=== PATIENT | male | born 1990 | race Caucasian/White ===

== ENCOUNTER 2021-06-17 19:26 | Emergency (ER) | payer OTHER, SELFPAY ==
[2021-06-17 19:40] VITALS: BP 119/79; PULSE 70; RESP 20; TEMP 37.6; O2SAT 100
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
== END 2021-06-17 20:33 | disposition home or self-care (01) ==
PROVIDERS: Emergency Provider Nurse Practitioner
DX: S61.411A Laceration without foreign body of right hand, initial encounter (principal); W45.8XXA Other foreign body or object entering through skin, initial encounter
CPT/HCPCS: 12002; 99212; G0463

== ENCOUNTER 2021-09-29 13:33 | Emergency (ER) | payer OTHER, SELFPAY ==
[2021-09-29 13:38] VITALS: BP 134/62; PULSE 63; RESP 14; TEMP 37; O2SAT 100
--- NOTE | 2021-09-29 13:43 | ED.BACK ---
HPI - Back Pain/Injury General Chief Complaint: Back Pain/Injury Stated Complaint: Back Pain Time Seen by Provider: 09/29/21 13:43 Source: patient and RN notes reviewed History of Present Illness HPI Narrative: Patient is a 30-year-old male who presents the urgent care with complaints of upper back pain. Patient states he is done a lot of remodeling at home and does have a history of neck pain radiating. Patient states that he has recently been seeing a chiropractor which did seem to help with the pain however he is now having some radiation to the left shoulder and elbow. Patient has been taking ibuprofen with little relief. No other acute complaints. No acute distress noted. Patient aware of the plan of care. Some parts of this dictation were generated by voice recognition software and may contain typographical and/or grammatical inaccuracies. Related Data Allergies Allergy/AdvReac Type Severity Reaction Status Date / Time No Known Allergies Allergy Verified 09/29/21 13:47 Review of Systems Review of Systems: CONSTITUTIONAL: Denies fever, chills, or sweats. EYES: Denies visual changes, redness, or discharge. ENT: Denies rhinorrhea, congestion, sore throat, or otalgia. CARDIOVASCULAR: Denies chest pain, palpitations, or edema. RESPIRATORY: Denies cough or dyspnea. GASTROINTESTINAL: Denies abdominal pain, nausea, vomiting, or diarrhea. GENITOURINARY: Denies dysuria or hematuria. SKIN: Denies rash or itching. MUSCULOSKELETAL: Reports of upper back pain radiating to the left shoulder and elbow NEUROLOGIC: Denies headache, numbness, or weakness. All other systems reviewed are negative, except as documented in HPI. PMFSH Comments At the time of my signature, I reviewed and agree with the nursing past medical, surgical, social, and family history. There is no relevant family history pertinent to the patient complaint. Exam Narrative: GENERAL: This is a well-nourished, well-developed patient, in no apparent distress. HEAD: normocephalic, atraumatic. EYES: PERRL. Sclera clear/white. Vision is grossly intact. EARS: External ears normal NOSE: External nose normal with no obvious nasal discharge, nares without redness, no rhinorrhea. THROAT: Mucous membranes moist NECK: Neck supple; mild left cervical tenderness exacerbated with flexion CARDIOVASCULAR: Regular rate and rhythm without murmurs, gallops, or rubs. RESPIRATORY: Clear to auscultation. Breath sounds equal bilaterally. No wheezes, rales, or rhonchi. SKIN: warm, intact with no suspicious lesions or rash, good texture and turgor. NEURO: awake, alert, and oriented to person, place and time. There were no obvious focal neurologic abnormalities. EXTREMITIES: No clubbing, cyanosis, or edema. BACK: Mild upper thoracic/scapular tenderness. Course Course Level of Care: Express Care Visit Vital Signs Vital signs: Vital Signs Temperature 98.6 F 09/29/21 13:38 Pulse Rate 63 09/29/21 13:38 Respiratory Rate 14 09/29/21 13:38 Blood Pressure 134/62 09/29/21 13:38 Pulse Oximetry 100 09/29/21 13:38 Oxygen Delivery Room Air 09/29/21 13:38 Temperature 98.6 F 09/29/21 13:38 Pulse Rate 63 09/29/21 13:38 Respiratory Rate 14 09/29/21 13:38 Blood Pressure 134/62 09/29/21 13:38 Pulse Oximetry 100 09/29/21 13:38 Oxygen Delivery Room Air 09/29/21 13:38 Reviewed MDM - Back Pain/Injury MDM Narrative Medical decision making narrative: Advised patient complete the steroid regimen as prescribed. Be sure to eat and drink with the medication. Use the Flexeril as needed for a muscle relaxant. Be aware that it does make you drowsy and would not advise operating heavy machinery or working while on the medication. Use the ibuprofen as needed for pain. May use ice/heat intermittently for comfort. Avoid any strenuous activity especially lifting above the head, pushing, pulling. Follow-up with your PCP within 2 to 5 days or for worsening symptoms
[2021-09-29 13:48] VITALS: BP 134/62; PULSE 63; RESP 14; TEMP 37; O2SAT 100
== END 2021-09-29 14:01 | disposition home or self-care (01) ==
PROVIDERS: Emergency Provider Nurse Practitioner Family; PCP Internal Medicine
DX: M54.12 Radiculopathy, cervical region (principal)
CPT/HCPCS: 99213; G0463

== ENCOUNTER 2022-04-18 14:36 | Emergency (ER) | payer OTHER, SELFPAY ==
[2022-04-18 14:42] VITALS: BP 144/63; PULSE 88; RESP 18; TEMP 37.1; O2SAT 100
--- NOTE | 2022-04-18 14:44 | ED.ARRPALP ---
HPI - Arrhythmia/Palpitations General Chief Complaint: Arrhythmia/Palpitations Stated Complaint: lightheaded; fluttering in heartrate History of Present Illness HPI narrative: 31-year-old male presents to urgent care with complaints episode of feeling lightheaded on Thursday. Patient states he was sitting there watching television we had the episode lasting ?just a few seconds. Patient states ever since then, he has just not felt right and thinks he may be having anxiety. Patient states after the episode he began deep breathing and thinks he had panic attack. Patient states his mom did have a cardiac stent placed at the age of 45 or 46 and was concerned about that. Patient denies any recent illness, vomiting, diarrhea, chest pain, shortness of breath, or syncope. Patient has not had any medications. Patient does have an appointment with his primary care physician on Thursday. Some parts of this dictation were generated by voice recognition software and may contain typographical and/or grammatical inaccuracies. Related Data Allergies Allergy/AdvReac Type Severity Reaction Status Date / Time No Known Allergies Allergy Verified 04/18/22 14:44 Review of Systems Review of Systems: CONSTITUTIONAL: Denies fever, chills, or sweats. EYES: Denies visual changes, redness, or discharge. ENT: Denies otalgia and sore throat CARDIOVASCULAR: Denies chest pain, palpitations, or edema. RESPIRATORY: Denies cough or dyspnea. GASTROINTESTINAL: Denies abdominal pain, nausea, vomiting, or diarrhea. GENITOURINARY: Denies dysuria or hematuria. SKIN: Denies rash or itching. MUSCULOSKELETAL: Denies back pain, joint pain, or myalgia. NEUROLOGIC: Denies headache, numbness, or weakness. Psychiatric: Reports anxiety PMFSH Comments At the time of my signature, I reviewed and agree with the nursing past medical, surgical, social, and family history. There is no relevant family history pertinent to the patient complaint. Exam Narrative: GENERAL: This is a well-nourished, well-developed patient, in no apparent distress. HEAD: normocephalic, atraumatic. EYES: PERRL. Sclera clear/white. Vision is grossly intact. EARS: External ears normal, auditory canals clear and without drainage, TMs normal without perforation. Hearing grossly intact. NOSE: External nose normal with no obvious nasal discharge, nares without redness, no rhinorrhea. THROAT: Mucous membranes moist, posterior pharynx clear. NECK: Neck supple, non-tender without lymphadenopathy, masses or thyromegaly. CARDIOVASCULAR: Regular rate and rhythm without murmurs, gallops, or rubs. RESPIRATORY: Clear to auscultation. Breath sounds equal bilaterally. No wheezes, rales, or rhonchi. GASTROINTESTINAL: Abdomen soft, non-tender, nondistended. Bowel sounds are active. No hepato-splenomegaly, or palpable masses. No guarding. SKIN: warm, intact with no suspicious lesions or rash, good texture and turgor. NEURO: awake, alert, and oriented to person, place and time. There were no obvious focal neurologic abnormalities. Course Course Level of Care: Express Care Visit Vital Signs Vital signs: Vital Signs Temperature 98.7 F 04/18/22 14:42 Pulse Rate 88 04/18/22 14:42 Respiratory Rate 18 04/18/22 14:42 Blood Pressure 144/63 H 04/18/22 14:42 Pulse Oximetry 100 04/18/22 14:42 Oxygen Delivery Room Air 04/18/22 14:42 Temperature 98.7 F 04/18/22 14:45 Pulse Rate 88 04/18/22 14:45 Respiratory Rate 18 04/18/22 14:45 Blood Pressure 144/63 H 04/18/22 14:45 Pulse Oximetry 100 04/18/22 14:45 Oxygen Delivery Room Air 04/18/22 14:45 Reviewed. MDM - Arrhythmia/Palpitations MDM Narrative Medical decision making narrative: You can try deep breathing exercises, 15 min a day of exercise, and possibly counseling for anxiety. Go to your MD appt on Thursday and if symptoms persist and/or get worse, go to the ER. Differential Diagnosis Differential diagnosis: Likely palpitations, an
[2022-04-18 14:45] VITALS: BP 144/63; PULSE 88; RESP 18; TEMP 37.1; O2SAT 100
--- NOTE | 2022-04-18 14:52 | ECG_ITS ---
Measurements Intervals [place] Rate: 60 P: 16 UT: 134 QRS: 70 QRSD: 101 T: 57 QT: 380 QTc: 382 Interpretive Statements SINUS RHYTHM POSSIBLE RIGHT VENTRICULAR CONDUCTION DELAY [RSR (QR) IN V1/V2] OTHERWISE NORMAL ECG NO PREVIOUS ECG AVAILABLE FOR COMPARISON Electronically Signed On 04-19-2022 12:45:13 ACQUISITIONS ASSISTANT by Vinod Angeles M.D.
== END 2022-04-18 15:20 | disposition home or self-care (01) ==
PROVIDERS: Emergency Provider Nurse Practitioner Family; PCP Internal Medicine
DX: F41.9 Anxiety disorder, unspecified (principal)
CPT/HCPCS: 93005; 99213; G0463

== ENCOUNTER 2022-07-27 11:43 | Emergency (ER) | payer OTHER, SELFPAY ==
--- NOTE | ~2022-07-27 | XR_ITS ---
XR hand RT min 3V 07/27/2022 12:13 INDICATION: Right hand PROCEDURE: 3 views right hand COMPARISON: No prior studies for comparison. FINDINGS: Fracture, dislocation or subluxation is not identified. The soft tissues appear within norm al limits. No foreign bodies are identified. IMPRESSION: 1: NO ACUTE BONE OR JOINT ABNORMALITY IDENTIFIED. Reviewed, dictated and finalized at location A.
[2022-07-27 11:52] VITALS: BP 125/66; PULSE 79; RESP 16; TEMP 37.5; O2SAT 98
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
== END 2022-07-27 13:30 | disposition home or self-care (01) ==
PROVIDERS: Emergency Provider Nurse Practitioner; PCP Internal Medicine
DX: S61.411A Laceration without foreign body of right hand, initial encounter (principal); Y04.0XXA Assault by unarmed brawl or fight, initial encounter
CPT/HCPCS: 12002; 73130; 99213; G0463

== ENCOUNTER 2022-07-30 16:35 | Observation (INO) | payer OTHER, SELFPAY ==
[2022-07-30] VITALS (11 sets, daily range): BP systolic 110–147; BP diastolic 54–88; PULSE 61–93; RESP 11–18; TEMP 36.2–37.1; O2SAT 95–100
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
[2022-07-30 17:07] LABS: Basophils Percent Auto 0.2 % (0.2-1.2); Eosinophils Absolute Auto 0.1 K/mm3 (0-0.3); Eosinophils Percent Auto 1.1 % (0-4.4); Hematocrit 40.5 % (42.0-52.0); Hemoglobin 13.8 g/dL (14.0-18.0); Immature Granulocyte Absolute 0.02 K/mm3 (0.00-0.031); Immature Granulocyte Percent A 0.2 % (0-0.5); Lymphocytes Absolute Auto 1.66 K/mm3 (0.9-3.2); Lymphocytes Percent Auto 15.2 % (18.3-44.2); Mean Corpuscular HGB Conc 34.1 g/dl (32-36); Mean Corpuscular Hemoglobin 30.6 pg (26-34); Mean Corpuscular Volume 89.8 fl (80-100); Monocytes Absolute Auto 0.9 K/mm3 (0.1-0.6); Monocytes Percent Auto 7.9 % (2.6-8.5); Neutrophils Absolute Auto 8.2 K/mm3 (1.3-6.7); Neutrophils Percent Auto 75.4 % (45.5-73.1); Platelet Count Result 216 k/mm3 (150-375); Red Blood Count 4.51 M/mm3 (4.6-6.20); Red Cell Distribution Width 12.5 % (11.5-14.5); White Blood Count 10.9 K/mm3 (4.5-10.0)
[2022-07-30 17:17] LABS: Alanine Aminotransferase 27 U/L (6-50); Albumin Level 4.1 g/dL (3.5-5.1); Alkaline Phosphatase 91 U/L (38-126); Anion Gap 5 mmol/L (8-16); Aspartate Amino Transferase 26 U/L (17-59); Bilirubin,Total 0.9 mg/dL (0.2-1.3); Blood Urea Nitrogen 9 mg/dL (9-20); Calcium 8.8 mg/dL (8.4-10.2); Carbon Dioxide 33 mmol/L (22-30); Chloride 102 mmol/L (98-107); Estimated CRCL calculation 112 ml/min; Estimated Glomerular Filt Rate > 60; Glucose 94 mg/dL (65-110); Potassium 3.7 mmol/L (3.4-5.0); Sodium 140 mmol/L (137-145)
[2022-07-30 17:18] LABS: INR 0.9
[2022-07-30 17:19] LABS: Partial Thromboplastin Time 26.3 SECONDS (22.3-36.8)
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
--- NOTE | 2022-07-30 18:25 | WPDANESEPPF ---
Anes - Initial Pre Proc Eval Procedure: Operation Date: 07/30/22 18:00 Proposed Procedures p I&D Debride Right Hand(Right) - Mejia Gray MD Date/Time: 07/30/22 18:25 Surgeon: Mejia Gray MD Pre Op Diagnosis: right index finger injury Patient Data Age: 31 Gender: M Height: 1.73 m Weight: 75.1 kg Last Vital Signs Temp 37.1 C 07/30/22 16:51 Pulse 92 07/30/22 18:07 Resp 16 07/30/22 18:07 BP 129/78 07/30/22 18:07 Pulse Ox 100 07/30/22 18:07 O2 Del Method Room Air 07/30/22 16:51 Allergies Allergy/AdvReac Type Severity Reaction Status Date / Time No Known Allergies Allergy Verified 07/30/22 16:39 Home Medications Medication Instructions Recorded Confirmed Type amoxicillin 875 mg-potassium 1 tablet PO Q12H #20 tabs 07/27/22 Rx clavulanate 125 mg tablet sertraline 25 mg tablet 25 mg PO DAILY 07/27/22 07/27/22 History Laboratory Tests 07/30/22 17:00 WBC 10.9 H K/mm3 (4.5-10.0) RBC 4.51 L M/mm3 (4.6-6.20) Hgb 13.8 L g/dL (14.0-18.0) Hct 40.5 L % (42.0-52.0) MCV 89.8 fl (80-100) MCH 30.6 pg (26-34) MCHC 34.1 g/dl (32-36) RDW 12.5 % (11.5-14.5) Plt Count 216 k/mm3 (150-375) MPV 10.0 fl (7.4-10.4) Immature Gran % (Auto) 0.2 % (0-0.5) Neut % (Auto) 75.4 H % (45.5-73.1) Lymph % (Auto) 15.2 L % (18.3-44.2) [place] % (Auto) 7.9 % (2.6-8.5) Eos % (Auto) 1.1 % (0-4.4) Baso % (Auto) 0.2 % (0.2-1.2) Lymph # (Auto) 1.66 K/mm3 (0.9-3.2) [place] # (Auto) 0.9 H K/mm3 (0.1-0.6) Eos # (Auto) 0.1 K/mm3 (0-0.3) Baso # (Auto) 0.0 K/mm3 (0.0-0.1) Abs Immat Gran (auto) 0.02 K/mm3 (0.00-0.031) Absolute Neuts (auto) 8.2 H K/mm3 (1.3-6.7) Absolute Nucleated RBC 0.0 K/mm3 (0.0-0.012) Nucleated RBC % 0.0 % (0.0-0.2) PT 13.0 Seconds (11.1-14.7) INR 0.9 APTT 26.3 SECONDS (22.3-36.8) Sodium 140 mmol/L (137-145) Potassium 3.7 mmol/L (3.4-5.0) Chloride 102 mmol/L (98-107) Carbon Dioxide 33 H mmol/L (22-30) Anion Gap 5 L mmol/L (8-16) BUN 9 mg/dL (9-20) Creatinine 0.80 mg/dL (0.7-1.3) Estim Creat Clear Calc 112 ml/min Estimated GFR > 60 (59 - ) Glucose 94 mg/dL (65-110) Calcium 8.8 mg/dL (8.4-10.2) Total Bilirubin 0.9 mg/dL (0.2-1.3) AST 26 U/L (17-59) ALT 27 U/L (6-50) Alkaline Phosphatase 91 U/L (38-126) Total Protein 7.0 g/dL (6.3-8.2) Albumin 4.1 g/dL (3.5-5.1) Patient hx anesthesia problems: none Family hx anesthesia problems: none Results Review: All pre-operative results and documents have been reviewed as part of the pre-operative evaluation. [facility] Past Medical History Medical History Ex-smoker Surgical History Surgical History (Updated 07/30/22 @ 18:26 by Kristian Kerns MD) H/O colonoscopy Family History Family History Mother Family history non-contributory Social History Social History Alcohol intake: current Alcohol use details: social Gender identity (if verbalized by the patient): Male Sexual Orientation (if Verbalized by the Patient): Straight or Heterosexual Spiritual care concerns: No Anes - Eval Final PreProcedure Day of Procedure 07/30/22 18:25 Patient weight: normal Heart: regular rate and rhythm Lungs: clear to auscultation Airway: Mallampati scale class 1 Neurological: alert and oriented Last oral intake: >/= 8 hours ASA classification: II Emergent: no Anesthesia type and monitoring: general LMA and standard monitoring Results Review: All pre-operative results and documents have been reviewed as part of the pre-operative evaluation. Informed Consent: The patient's anesthetic plan and its attendant risks and benefits were discussed with the patient/fami
--- NOTE | 2022-07-30 18:36 | WPDHPUPDATE1 ---
History and Physical Update Update Date/Time: 07/30/22 18:36 History and Physical has been reviewed, including an updated exam of the patient. There are NO changes in the patient's condition. Risks, benefits, and alternatives have been discussed and questions answered. Patient agrees to proceed with procedure.
[2022-07-30] MEDS: LIDO 1%/EPINEPHRINE 1:100,000 50 ML VIAL 6 ML INFILTRATE (18:37)
[2022-07-30] MEDS: KETOROLAC 30 MG/ML VIAL (*BKC) IV PUSH (18:45)
[2022-07-30] MEDS: LACTATED RINGERS 1,000 ML 30 ML IV CONT ×2 (18:45→19:39)
[2022-07-30] MEDS: PIPERACILLN/TAZ 3.375GM/NS50ML 3.375 GM/50 ML BAG IVPB (18:55)
[2022-07-30] MEDS: ceFAZolin 1 GM/NS 50 ML 1 GM/50 ML BAG IVPB (19:15)
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
--- NOTE | 2022-07-30 21:14 | ADMGEN ---
This patient, Fabiano Cedeño, was admitted to [facility] Surg Room 301-01. Patient/family oriented to hospital policies and general routines including ID bracelet, bed and alarms, visiting hours, pain management, procedures, bathroom and other care routines, personal items, smoking policy, room service/diet, and visiting hours. Information on how to activate the Rapid Response Team has been discussed. Patient/Family are encouraged to report perceived risks to care and to ask questions if they do not understand what they are told or what they should do.
[2022-07-30] MEDS: MEROPENEM 1 GM in SODIUM CHLORIDE 0.9% IV 100 ML 200 ML IVPB (22:16)
[2022-07-31 02:10] VITALS: BP 125/47; PULSE 85; RESP 20; TEMP 35.8; O2SAT 98
[2022-07-31 04:45] VITALS: BP 120/47; PULSE 77; RESP 16; TEMP 35.8; O2SAT 98
[2022-07-31] MEDS: MEROPENEM 1 GM in SODIUM CHLORIDE 0.9% IV 100 ML 200 ML IVPB (05:45)
[2022-07-31] MEDS: ACETAMINOPHEN 500 MG TABLET PO (06:55)
[2022-07-31 08:00] VITALS: BP 115/56; PULSE 65; RESP 14; TEMP 36.8; O2SAT 97
[2022-07-31] MEDS: AMOXICILLIN/CLAVULANATE K 875-125 MG TAB 1 TABLET PO (10:40)
[2022-07-31 12:03] VITALS: BP 135/68; PULSE 63; RESP 16; TEMP 36.1; O2SAT 98
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
--- NOTE | 2022-07-31 14:11 | PC.NURSE ---
On 07/31/22, Amber Reeves, provided care and completed Kuznech documentation on this patient. I have reviewed her documentation and agree with the findings.
== END 2022-07-31 13:35 | disposition home or self-care (01) ==
LOC: ANHED 17:16 → ANHSURGERY 17:19 → ANH3MEDSUR 22:52 → ANHSURGERY 07-31 10:35 → ANH3MEDSUR 07-31 10:35
PROVIDERS: Admitting Provider Plastic Surgery; Emergency Provider Emergency Medicine; PCP Internal Medicine; Visit Provider Plastic Surgery
PROC: (CPT 11043; principal; 2022-07-30 18:00)
DX: M65.141 Other infective (teno)synovitis, right hand (principal); S61.250A Open bite of right index finger without damage to nail, initial encounter; W50.3XXA Accidental bite by another person, initial encounter; M00.9 Pyogenic arthritis, unspecified; M79.89 Other specified soft tissue disorders; F10.90 Alcohol use, unspecified, uncomplicated; Z79.899 Other long term (current) drug therapy
CPT/HCPCS: 11043; 26160; 36415; 80053; 85025; 85610; 85730; 99285; A9270; G0378; J0131; J0690; J1100; J1885; J2185; J2250; J2405; J2543; J2704; J7120

== ENCOUNTER 2022-08-28 07:31 | Outpatient (RCR) | payer OTHER, SELFPAY ==
--- NOTE | 2022-08-28 13:30 | OTOPEVAL1 ---
Assessment and note entered by Mary Renee OTR/Max Evaluation Information Assessment Status Evaluation Diagnosis Septic tenosynovitis and septic arthritis R Digit 2 Subjective Information Patient presents to outpatient OT following a excisional debridement of septic extensor tenosynovitis and 2nd metacarpophalangeal joint capsule right hand 07/30/2022 following a laceration to R index finger on 07/28/2022. Patient reports stiffness to MP joint of R index finger and difficulty with completing shoe tying, griping /grasping tasks. 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 Reported Pain Level Pain Score 0: Self Report Assessment OT Clinical Summary Fabiano is a 31 y/o R hand dominant male who presents to outpatient OT following a R index finger MPJ septic arthritis and tenosynovitis with debridement on 07/30/2022. Patient demonstrates decreased active ROM and strength of R UE digit 2 limiting patients ability to perform gripping/ grasping tasks in addition to difficulty with tying shoes. Patient would benefit from skilled OT for HEP instruction, UE exercise, manual therapy, modalities, in order to increase functional use of dominant R UE. Plan of Care Interventions Therapeutic Exercise,Manual Therapy,Therapeutic Activities,Hot Pack/Cold Pack,Ultrasound,Paraffin OT Services Indicated Yes Treatment Frequency and 0-1x/week, 5 weeks Duration These treatments will address the objective and functional deficits as defined above. The patient will be advanced safely and appropriately in order for the patient to progress towards his/her prior level of function. Additional exercises will be introduced and as well as a comprehensive home exercise program upon discharge, if needed, ?to ensure carryover of functional gains achieved in the clinic. This treatment plan has been reviewed and agreement upon by the patient.
--- NOTE | 2022-08-29 08:58 | OPREHPOC ---
Outpatient Therapy Plan of Care This is a Multidisciplinary Plan of Care that may contain components documented by all disciplines (PT, OT, and ST.) OT Problem 1 OT Problem #1 Knowledge Deficit OT Goal 1 Goal 1. Demonstrate understanding of HEP materials for R UE digit 2. OT Problem 2 OT Problem #2 Pain OT Goal 1 Goal 1. Patient will report 0/10 pain at worst in R UE digit 2 during daily and functional tasks. OT Problem 3 OT Problem #3 Impaired Range of Motion OT Goal 1 Goal 1. Increase digit 2 MP joint flexion from 59 degrees to 75 degrees. OT Goal 2 Goal 2. Increase MP joint extension lag from -18 degrees to 0 degrees. OT Problem 4 OT Problem #4 Impaired Strength OT Goal 1 Goal 1. 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 2. Increase lateral pinch strength from 9.7lbs to 14lbs. 3. Increase R tip pinch strength (thumb and index fingers) from 4.33lbs to 7lbs.
--- NOTE | 2022-09-10 14:57 | PCOTNOTE ---
Patient did not show up for scheduled appointment this date. Called patient and he reports that he could not attend due to being at work and that 2:30 appointments are not going to work for him. He plans to talk to his boss about taking a half day off on the to come in for a follow up to upgrade his HEP and possibly discuss discharging. He reports he unfortunately doesn't have the time to take off work to get here.
--- NOTE | 2022-10-08 15:30 | PCOTNOTE ---
Patient called & cancelled scheduled appointment this date due to work.
--- NOTE | 2022-10-17 08:48 | OTOPDC ---
Assessment and note entered by Cameron French, OTR/L, CHT Discharge Note 10/17/22 Diagnosis Septic tenosynovitis and septic arthritis R Digit 2 Subjective Information Patient has been unable to follow up with therapy since his initial evaluation on 08/27/22. He reports being unable to get off work to attend therapy. At this time we are discharging from skilled services.
== END 2022-10-21 13:59 | disposition home or self-care (01) ==
LOC: ANHGOSHOT 07:31
PROVIDERS: PCP Internal Medicine; Visit Provider Plastic Surgery
DX: Z48.817 Encounter for surgical aftercare following surgery on the skin and subcutaneous tissue (principal)
CPT/HCPCS: 97110; 97140; 97165; 99199

== ENCOUNTER 2022-09-08 17:13 | Outpatient (CLI) | payer OTHER, SELFPAY ==
--- NOTE | ~2022-09-08 | XR_ITS ---
EXAM: XR hand RT min 3V DATE: 09/08/2022 17:25 HISTORY: SEPTIC R 2ND MPJ . COMPARISON: None available. FINDINGS: Normal mineralization. No fracture or dislocation. No lytic or blastic lesion. Joint space s are maintained. No erosion or periosteal change. Soft tissue swelling over the first MCP joint. IMPRESSION: Soft tissue swelling over the first MCP joint. No radiographic evidence of osteomyelitis. Consider MR of the hand without and with contrast for further evaluation. Reviewed, dictated and finalized at location [facility]. IMPRESSION: Soft tissue swelling over the first MCP joint. No radiographic evid ence of osteomyelitis. Consider MR of the hand without and with contrast for fu rther evaluation.
== END 2022-09-08 17:14 | disposition home or self-care (01) ==
LOC: ANHIMG 17:15
PROVIDERS: PCP Internal Medicine; Visit Provider Plastic Surgery
DX: M86.141 Other acute osteomyelitis, right hand (principal); M79.89 Other specified soft tissue disorders
CPT/HCPCS: 73130

== ENCOUNTER 2024-08-03 15:43 | Outpatient (CLI) | payer OTHER, SELFPAY ==
--- NOTE | ~2024-08-03 | MR_ITS ---
MRI of the left elbow CLINICAL HISTORY: Pain TECHNIQUE: Proton-density and proton-density fat-sat imaging was performed in the axial, coronal, and sagittal planes. FINDINGS: Ulnar collateral ligament is intact. Radial collateral ligament and the lateral ulnar colla teral ligament are intact. There is mild tendinosis at the common extensor tendon origin. Common flex or tendon origin is intact. Bone marrow signals are unremarkable. No fracture or dislocation. There is minimal elbow joint effusi on. No distinct articular abnormality of the elbow joint identified otherwise. Biceps, brachialis, and triceps tendons are intact. Visualized muscle bellies are unremarkable. No so ft tissue mass or fluid collection seen. IMPRESSION: Minimal elbow joint effusion is present, nonspecific. Minimal tendinosis of the common extensor tendon origin. Reviewed, dictated and finalized at [facility].
== END 2024-08-03 15:44 | disposition home or self-care (01) ==
LOC: GOSHIMG 15:43
PROVIDERS: PCP Internal Medicine; Visit Provider Orthopaedic Surgery
DX: S59.909A Unspecified injury of unspecified elbow, initial encounter (principal); M25.522 Pain in left elbow; M25.422 Effusion, left elbow
CPT/HCPCS: 73221